=== PATIENT | male | born 1975 | race Two or more races ===

== ENCOUNTER 2019-10-29 15:59 | Emergency (ER) | payer OTHER ==
[~2019-10-29] VITALS: Ht 167.6 cm; Wt 136.1 kg
[2019-10-29] MEDS ORDERED: METFORMIN HCL1000 M1 ORAL (16:10)
[2019-10-29 16:15] VITALS: BP 126/85
--- NOTE | 2019-10-29 16:15 | NUR ---
ED Nurse Note: Pt walked into ED c/o sob and painful cough onset yesterday at 1999. Pt also c/o headache that is 8/10 pain and pressure like in nature. Pt reports hx of DM and asthma. Pt is breathing normal, unlabored and speaking in full sentences. Pt is aaox4, ambulatory with steady gait. Pt connected to nuclear monitoring technician and placed in gown. Pt HR is 128 at this time. ERMD at bedside, will follow orders and will continue to monitor.
[2019-10-29] MEDS ORDERED: Albuterol/Ipratropium 3ml neb HHN ONE (16:30)
--- NOTE | 2019-10-29 16:33 | Emergency Room Report ---
History of Present Illness General Chief Complaint: Upper Respiratory Illness Source: Patient Present Illness HPI Disclaimer: Please note that this report is being documented using DRAGON technology. This can lead to erroneous entry secondary to incorrect interpretation by the dictating instrument. HPI: 44-year-old male with history of diabetes and asthma presents for evaluation of coughing. Patient states symptoms began approximately 24 hours ago. He has had a nonproductive cough that is been persistent with worsening shortness of breath. He has felt warm but no objective fevers. Reports nasal congestion and sore throat. Reports nausea without vomiting or diarrhea. Notes diffuse myalgias, sore chest from coughing persistently. No known sick contacts. He did receive a flu shot this year. PMH: Diabetes, asthma PSH: Denies Allergies: Denies Social Hx: Denies alcohol, tobacco or drug use Allergies: Coded Allergies: No Known Allergies (Unverified , 10/29/19) Nursing Documentation-PMH Past Medical History: No History, Except For Hx Asthma: Yes Hx Diabetes: Yes Review of Systems All Other Systems: negative except mentioned in HPI Physical Exam Vital Signs Date Time Temp Pulse Resp B/P (MAP) Pulse Ox O2 Delivery O2 Flow Rate FiO2 10/29/19 16:05 99.3 129 17 126/85 (99) 95 Room Air General: Awake and alert, no acute distress HEENT: NC/AT. EOMI. anicteric sclera. Tympanic membranes are erythematous but nonbulging with clear landmarks and no evidence of effusion bilaterally. Throat is erythematous with midline uvula, no exudate, no edema. Neck: Supple, trachea midline Chest Wall: Diffusely tender to palpation without deformity Cardiovascular: Tachycardic. S1 and S2 normal. No murmur appreciated Resp: Mild increased work of breathing. Intermittent nonproductive cough throughout my exam. No wheezing or crackles Abdomen: Abdomen is soft, nondistended. Nontender Skin: Intact. No abrasions, laceration or rash over the exposed skin MSK: Normal tone and bulk. Moving all extremities. No obvious deformity. Neuro: Awake and alert. Mentating appropriately. Medical Decision Making Diagnostic Impression: Primary Impression: Upper respiratory infection ER Course 44-year-old male presents for evaluation of coughing URI symptoms for 1 day. Differential includes was not limited to upper respiratory infection, viral syndrome, pneumonia, influenza, GERD, asthma exacerbation. Will obtain EKG for his tachycardia, chest x-ray, screening labs give IV fluids, breathing treatment. Laboratory Tests Test 10/29/19 16:45 White Blood Count 12.2 K/UL (4.8-10.8) H Red Blood Count 5.30 M/UL (4.70-6.10) Hemoglobin 15.0 G/DL (14.2-18.0) Hematocrit 43.4 % (42.0-52.0) Mean Corpuscular Volume 82 FL (80-99) Mean Corpuscular Hemoglobin 28.3 PG (27.0-31.0) Mean Corpuscular Hemoglobin Concent 34.5 G/DL (32.0-36.0) Red Cell Distribution Width 10.3 % (11.6-14.8) L Platelet Count 294 K/UL (150-450) Mean Platelet Volume 6.1 FL (6.5-10.1) L Neutrophils (%) (Auto) 71.0 % (45.0-75.0) Lymphocytes (%) (Auto) 16.4 % (20.0-45.0) L Monocytes (%) (Auto) 9.0 % (1.0-10.0) Eosinophils (%) (Auto) 2.2 % (0.0-3.0) Basophils (%) (Auto) 1.4 % (0.0-2.0) Sodium Level 134 MMOL/L (136-145) L Potassium Level 4.0 MMOL/L (3.5-5.1) Chloride Level 97 MMOL/L (98-107) L Carbon Dioxide Level 25 MMOL/L (21-32) Anion Gap 12 mmol/L (5-15) Blood Urea Nitrogen 13 mg/dL (7-18) Creatinine 1.0 MG/DL (0.55-1.30) Estimate Glomerular Filtration Rate > 60 mL/min (>60) Glucose Level 328 MG/DL (74-106) H Calcium Level 9.3 MG/DL (8.5-10.1) Microbiology Date/Time Source Procedure Growth Status 10/29/19 16:45 Nasal Nares - Final Complete 10/29/19 16:45 Nasal Nares - Final Complete EKG Diagnostic Results EKG Time: 17:30 Rate: tachycardiac Rhythm: NSR ST Segments: no acute changes Other Impression Sinus tachycardia, normal axis, normal intervals, no ST segment changes Rhythm Strip Diag. Results Rhythm Strip Time: 17:30 EP Interpretation: yes Rate: 110s Rhythm: NSR, no PVC's, no ectopy Chest X-Ray Diagnostic Results Chest X-Ray Diagnostic Results : Chest X-Ray Ordered: Yes # of Views/Limited/Complete: 1 View Indication: Shortness of Breath EP Interpretation: Yes Interpretation: no consolidation, no effusion, no pneumothorax, no acute cardiopulmonary disease Impression: No acute disease Electronically Signed by: Electronically signed by Dr. John Mello Reevaluation Time: 18:41 Last Vital Signs Date Time Temp Pulse Resp B/P (MAP) Pulse Ox O2 Delivery O2 Flow Rate FiO2 10/29/19 16:05 99.3 129 17 126/85 (99) 95 Room Air Reevaluation Impression Labs show slight elevation in white count with no shift. EKG shows sinus tachycardia which is improving with IV fluids. Chest x-ray shows no evidence of infiltrate. Patient is experiencing likely symptoms symptoms are probably related to an upper respiratory infection. He will be treated symptomatically with NSAIDs and Tessalon Perles. He has an appointment to follow-up with his PMD later this week. Gave him prednisone for sore throat prior to departure. We discussed reasons to return to the emergency department. He understands and agrees with this treatment plan. Disposition: HOME, SELF-CARE Condition: Stable Scripts Ibuprofen* (MOTRIN*) 600 Mg Tablet 600 MG ORAL Q8H PRN for For Pain, #30 TAB 0 Refills Prov: John Mello MD 10/29/19 Acetaminophen* (ACETAMINOPHEN 325MG TABLET*) 325 Mg Tablet 650 MG ORAL Q6H PRN for For Pain for 5 Days, #30 TAB Prov: John Mello MD 10/29/19 Benzonatate* (TESSALON PERLE*) 100 Mg Capsule 100 MG ORAL THREE TIMES A DAY for 7 Days, #30 PERLE Prov: John Mello MD 10/29/19 John Mello MD Oct 29, 2019 16:33
--- NOTE | 2019-10-29 16:36 | NUR ---
ED Nurse Note: Xray at bedside.
[2019-10-29 17:05] LABS: BASOPHILS % (AUTO) 1.4 % (0.0-2.0); EOSINOPHILS % (AUTO) 2.2 % (0.0-3.0); HEMATOCRIT 43.4 % (42.0-52.0); LYMPHOCYTES % (AUTO) 16.4 % (20.0-45.0); MEAN CORPUSCULAR VOLUME 82 FL (80-99); PLATELET COUNT 294 K/UL (150-450); RED CELL DISTRIBUTION WIDTH 10.3 % (11.6-14.8); WHITE BLOOD COUNT 12.2 K/UL (4.8-10.8)
[2019-10-29 17:19] LABS: ANION GAP 12 mmol/L (5-15); BLOOD UREA NITROGEN 13 mg/dL (7-18); CALCIUM 9.3 MG/DL (8.5-10.1); CARBON DIOXIDE 25 MMOL/L (21-32); CHLORIDE 97 MMOL/L (98-107); SODIUM 134 MMOL/L (136-145)
--- NOTE | 2019-10-29 17:21 | Diagnostic Imaging Report ---
Indication: Cough Technique: One view of the chest Comparison: none Findings: Lungs and pleural spaces are clear. Heart size is normal. Impression: No acute process
--- NOTE | 2019-10-29 17:48 | NUR ---
B[facility] in EDM - 10/29/19 at 1749 by MARIO ED Nurse Note: Keyla who is pt is at [facility]
--- NOTE | 2019-10-29 17:49 | NUR ---
ED Nurse Note: Pt taiwo is bedside at this time. Pt is talking, speaking in full sentences. No distress noted. IV fluids infusing. will continue to monitor.
[2019-10-29] MEDS ORDERED: TESSALON PERLE100 MG ORAL (18:39)
[2019-10-29] MEDS ORDERED: ACETAMINOPHEN325 M1 ORAL (18:39)
[2019-10-29] MEDS ORDERED: IBUPROFEN600 MG ORAL (18:39)
[2019-10-29 18:55] VITALS: BP 137/84
--- NOTE | 2019-10-29 18:55 | NUR ---
ED Nurse Note: Pt cleared by health care Provider for discharge. DC instructions/prescription was given and explained to pt and pt . Pt and pt verbalized understanding of teachings. All medical deviecs such as ID band and IV removed. Pt is AAO x4, ambulatory and left with all personal belongings. Pt accompanied by .
== END 2019-10-29 18:55 | disposition home or self-care (01) ==
LOC: EMR 18:20
DX: J06.9 Acute upper respiratory infection, unspecified (principal); E11.9 Type 2 diabetes mellitus without complications; R00.0 Tachycardia, unspecified
CPT/HCPCS: 36415; 71045; 80048; 85025; 86710; 93005; 94640; 94664; 96360; 96361; J7030; J7512; Z7502; 99284; J7620